=== PATIENT | female | born 1980 ===

== ENCOUNTER → 2022-06-21 10:20 | Outpatient (CLI) | payer OTHER | END | disposition home or self-care (01) | LOC: LAB 10:20 → EDBD 10:20 | DX: D63.8 Anemia in other chronic diseases classified elsewhere (principal); E03.9 Hypothyroidism, unspecified; E55.9 Vitamin D deficiency, unspecified; C66.2 Malignant neoplasm of left ureter; N91.1 Secondary amenorrhea; E78.5 Hyperlipidemia, unspecified; E11.29 Type 2 diabetes mellitus with other diabetic kidney complication ==

== ENCOUNTER → 2022-06-21 | Outpatient (CLI) | payer OTHER | END | disposition home or self-care (01) | LOC: MAMO-SONO 11:12 | PROVIDERS: ATTEND Specialist | DX: D25.9 Leiomyoma of uterus, unspecified (principal); N60.01 Solitary cyst of right breast; N60.02 Solitary cyst of left breast ==

== ENCOUNTER 2022-09-02 14:34 | Outpatient (CLI) | payer OTHER | END 2022-09-02 14:39 | disposition home or self-care (01) | LOC: RAD 14:34 | PROVIDERS: ATTEND Physical Medicine & Rehabilitation | DX: M54.2 Cervicalgia (principal) ==

== ENCOUNTER 2023-10-27 08:20 | Outpatient (CLI) | payer OTHER | END 2023-10-27 08:40 | disposition home or self-care (01) | LOC: MRI 08:20 | PROVIDERS: ATTEND Obstetrics & Gynecology | DX: R19.00 Intra-abdominal and pelvic swelling, mass and lump, unspecified site (principal) | CPT/HCPCS: 72196 ==

== ENCOUNTER 2023-11-11 08:44 | Outpatient (CLI) | payer OTHER | END 2023-11-11 08:50 | disposition home or self-care (01) | LOC: RAD 08:44 | PROVIDERS: ATTEND Obstetrics & Gynecology | DX: J20.9 Acute bronchitis, unspecified (principal) ==

== ENCOUNTER 2024-08-26 09:58 | Outpatient (CLI) | payer OTHER | END 2024-08-26 10:03 | disposition home or self-care (01) | LOC: MAMO-SONO 09:58 | PROVIDERS: ATTEND Specialist | DX: N60.01 Solitary cyst of right breast (principal); N60.02 Solitary cyst of left breast ==

== ENCOUNTER 2025-03-14 10:17 | Outpatient (CLI) | payer OTHER | END 2025-03-14 10:18 | disposition home or self-care (01) | LOC: SONOGRAMA 10:17 | PROVIDERS: ATTEND Surgery | DX: N60.11 Diffuse cystic mastopathy of right breast (principal); N60.12 Diffuse cystic mastopathy of left breast; N63.0 Unspecified lump in unspecified breast ==